=== PATIENT | female | born 1965 | race Caucasian/White ===

== ENCOUNTER 2020-09-12 18:10 | Emergency (ER) | payer BC, SELFPAY ==
[2020-09-12 18:11] VITALS: BP 133/75; PULSE 85; RESP 16; TEMP 35.9; O2SAT 100
--- NOTE | 2020-09-12 18:19 | RAD_ITS ---
STUDY: X-RAY CHEST REASON FOR EXAM: Female, 55 years old. INTERMITTENT CHEST PAIN LASTING A FEW MINUTES X 2 WEEKS TECHNIQUE: Single AP portable view of the chest. COMPARISON: None. FINDINGS: There is hyperinflation of the lungs consistent with chronic obstructive lung disease (COPD). No visualized consolidation. There is no demonstrated pleural abnormality. Normal size heart. Normal mediastinum and ananya. Normal visualized pulmonary arteries. Normal visualized aortic arch and descending thoracic aorta. There are diffuse degenerative changes of the visualized thoracic spine. Normal visualized ribs, clavicles, and shoulders. There is no demonstrated abnormality of the visualized soft tissue structures of the upper abdomen. RAD/Chest 1 View (Portable) IMPRESSION: COPD Electronically Signed: Wang Chappell MD at 19:03 EST , Service support ,
--- NOTE | 2020-09-12 18:19 | EKG12_ITS ---
Test Reason : CP Blood Pressure : / mmHG Vent. Rate : 082 BPM Atrial Rate : 082 BPM P-R Int : 144 ms QRS Dur : 114 ms QT Int : 384 ms P-R-T Axes : 077 075 041 degrees QTc Int : 448 ms Normal sinus rhythm Right bundle branch block Abnormal ECG Confirmed by VIRY ALMANZA, PEREZ ([id number]), department editor CHRISTEN SANDY ([id number]) on 09/15/2020 9:43:03 AM Referred By: GARLAND Confirmed By:PEREZ BAIRES MD
[2020-09-12 18:32] VITALS: O2SAT 99
--- NOTE | 2020-09-12 18:42 | ED.DCSUM_ITS ---
- ER Visit Summary Date of Service: 09/12/20 Chief Complaint: Chest pain History of Present Illness: The patient is a [address] Silva. She reports that she has intermittent chest pain that began 1 to 2 weeks ago. Said intermittent pain that lasts seconds at a time. She describes this as sharp. It is 5 out of 10 at worst and she is pain-free currently. States that it seems to come on when she moves her left arm. It is relieved by nothing. She denies any associated nausea, vomiting, diaphoresis, shortness of breath. States that it seemed to be more often approximate 1 week ago. It is now approximately 2 times per day. She denies any trauma. No fall, MVA, or change in activity. Physical Examination: Vitals: Stable. Afebrile. General: Well-nourished and well-developed. Head: Normocephalic atraumatic. Neck: Supple, no lymphadenopathy. No JVD. Nontender. Cardiovascular: Regular rate and rhythm. No murmurs. Respiratory: No respiratory distress. Clear to auscultation bilaterally. Chest is nontender. Abdominal: Soft, nontender, nondistended, normal bowel sounds. No guarding, rebound, or peritoneal signs. Back: Nontender. Extremities: Nontender, no edema. Skin: Normal color, no rash. Neurologic: Alert and oriented ?3. Cranial nerves II through XII are intact. Normal strength and sensation. Psych: Normal affect. Test Results: EKG is sinus at [address] changes and a right bundle branch block. There is no old EKG for comparison. CBC is normal. Chem-7 shows potassium 3.4, chloride of 108, glucose 159. Troponin is negative. Clinical Impression(s) from Imaging Studies Chest X-Ray 09/12/20 18:19 IMPRESSION: COPD Electronically Signed: Wang Chappell MD at 19:03 EST , Service support , Emergency Department Course and Treatment: Patient was given a dose of aspirin. She is resting comfortably and has been pain-free while here. Treatment Plan: Patient's pain is very atypical. I feel that she is a suitable candidate for further outpatient evaluation. She will be discharged instructions to follow-up with her primary care physician in 3 to 5 days for another exam. Return to the emergency department for any worsening symptoms. Disposition: To home in improved and stable condition. Impression: 1. Atypical chest pain. 2. Heart score of 2. 3. CATRACHITA score of 0. This note was generated with [employer] dictation software. It may contain incorrect words, spelling, and punctuation that were not noted in review of the chart prior to signing ED Disposition - Plan for ED Patient: Instructions: ED Chest Pain, Uncertain Cause Referrals: Em Hartman NATIONAL ACCOUNT EXECUTIVE, NATIONAL ACCOUNT EXECUTIVE-C [Primary Care Provider] - 3-5 Days
[2020-09-12 18:48] LABS: Absolute Lymphocyte Count 2.24 X10^3/uL (0.83-4.51); Absolute Neutrophil Count 2.7 X10^3/uL (2.0-7.7); Basophil# 0.07 X10^3/uL; Basophil% 1.2 % (0-1); Eosinophil# 0.11 X10^3/uL; Hematocrit 40.5 % (37-47); Hemoglobin 13.8 g/dL (12.0-15.0); Lymphocyte # 2.24 X10^3/ul (4.0); Lymphocyte % 39.9 % (19-41); Mean Corp Hgb Conc 34.1 g/dL (32-36); Mean Corpuscular Hgb 30.7 pg (27.0-32.0); Mean Corpuscular Volume 90.2 fL (81-99); Mean Platelet Vol. 9.9 fl (6.2-12.0); Monocyte# 0.52 X10^3/uL; Monocyte% 9.3 % (0-10); NRBC Flagged by Analyzer 0 % (0-5); Neutrophil # 2.66 X10^3/uL (2.7-7.7); Neutrophil % 47.4 % (47-70); Platelet Count 290 K/mm3 (150-450); RBC Distribution Width CV 12.6 % (11.6-14.6); Red Blood Count 4.49 M/mm3 (4.2-5.4); White Blood Count 5.6 K/mm3 (4.4-11.0)
[2020-09-12 19:04] LABS: Anion Gap 3 (5-15); BUN 15 mg/dL (7-18); BUN/Creat Ratio 20.8 RATIO (10-20); Calcium,Total 9.1 mg/dL (8.5-10.1); Chloride 108 mmol/L (98-107); Creatinine, Serum 0.72 mg/dL (0.55-1.02); EST Glomerular Filtration Rate 89 mL/min (>60); Est Glom Filt Rate - Afr Amer 108 mL/min (>60); Glucose 159 mg/dL (74-106); Potassium 3.4 mmol/L (3.5-5.1); Sodium Level 141 mmol/L (136-145)
[2020-09-12 19:22] VITALS: BP 121/76; PULSE 82; RESP 15; O2SAT 97
== END 2020-09-12 19:22 | disposition home or self-care (01) ==
LOC: ED 19:20
PROVIDERS: Emergency Provider Emergency Medicine; PCP Nurse Practitioner Family
DX: R07.89 Other chest pain (principal); J44.9 Chronic obstructive pulmonary disease, unspecified; I45.10 Unspecified right bundle-branch block
CPT/HCPCS: 71045; 80048; 84484; 85025; 93005; 99284; A4216